=== PATIENT | male | born 1960 | race African-American/Black ===

== ENCOUNTER 2016-08-25 00:36 | Emergency (ER) | payer OTHER ==
[~2016-08-25] VITALS: Ht 172.7 cm; Wt 85.5 kg
[2016-08-25 01:42] LABS: BASOPHILS % (AUTO) 0.9 % (0.0-2.0); EOSINOPHILS % (AUTO) 2.6 % (1.0-6.0); HEMATOCRIT 38.3 % (41-53); HEMOGLOBIN 12.8 g/dL (13.5-17.5); LYMPHOCYTES % (AUTO) 31.9 % (22.0-44.0); MEAN CORPUSCULAR HEMOGLOBIN 31.8 pg (26.0-34.0); MEAN CORPUSCULAR HGB CONC 33.5 G/dL (31.0-37.0); MEAN CORPUSCULAR VOLUME 95 fL (80-100); MONOCYTES # (AUTO) 0.3 K/uL (0.1-1.0); MONOCYTES % (AUTO) 9.4 % (2.0-9.0); NEUTROPHILS # (AUTO) 1.8 K/uL (1.8-7.7); NEUTROPHILS % (AUTO) 55.2 % (40.0-70.0); PLATELET COUNT (AUTO) 231 K/uL (150-450); RED BLOOD CELL COUNT(AUTO) 4.03 MIL/uL (4.50-5.90); RED CELL DISTRIBUTION WIDTH 13.1 % (11.5-14.5); WHITE BLOOD COUNT (AUTO) 3.2 K/uL (4.5-11.0)
[2016-08-25 01:51] LABS: ANION GAP 10 mmol/L (8-16); CALCIUM, TOTAL 8.9 mg/dL (8.8-10.5); CARBON DIOXIDE 28 mmol/L (22-29); CHLORIDE 107 mmol/L (98-107); CREATININE 0.83 mg/dL (0.60-1.30); GLOMERULAR FILTR. RATE CALC > 60 mL/min (>60); POTASSIUM 3.9 mmol/L (3.5-5.1); SODIUM SERUM 145 mmol/L (136-145); UREA NITROGEN, BLOOD 12 mg/dL (7-18)
[2016-08-25] MEDS ORDERED: LISI40TA4 PO (01:55)
[2016-08-25] MEDS ORDERED: AMLO10TA55 PO (01:55)
[2016-08-25] MEDS ORDERED: METF10002 PO (01:55)
[2016-08-25] MEDS ORDERED: PERCT10 PO (01:55)
[2016-08-25] MEDS ORDERED: GLIP10TA9 PO (01:55)
[2016-08-25] MEDS ORDERED: FAMO20TA PO (01:55)
[2016-08-25] MEDS ORDERED: MORP15TA9 PO (01:55)
[2016-08-25 01:57] LABS: GLUCOSE,POINT OF CARE 91 MG/DL (70-110)
[2016-08-25 01:58] LABS: ALANINE AMINOTRANSFERASE 51 U/L (12-78); ALBUMIN 3.8 g/dL (3.4-5.0); ASPARTATE AMINOTRANSFERASE 37 U/L (15-37); BILIRUBIN,TOTAL 0.2 mg/dL (0.1-1.0); TOTAL PROTEIN, SERUM 7.2 g/dL (6.4-8.2)
[2016-08-25 02:01] LABS: LACTIC ACID 1.1 mmol/L (0.4-2.0)
[2016-08-25] MEDS ORDERED: LORazepam 2 MG TABLET PO ONE (02:15)
[2016-08-25 04:01] VITALS: BP 135/70
== END 2016-08-25 04:01 | disposition home or self-care (01) ==
LOC: EMS 00:37
DX: G89.29 Other chronic pain (principal); M54.5 Low back pain; M79.1 Myalgia; F19.939 Other psychoactive substance use, unspecified with withdrawal, unspecified; F17.200 Nicotine dependence, unspecified, uncomplicated
CPT/HCPCS: 36415; 71010; 80053; 80307; 82962; 83605; 83690; 84484; 85025; 93005; 99285; 99406; G0480